=== PATIENT | male | born 1985 | race Caucasian/White ===

== ENCOUNTER → 2016-11-02 | Outpatient (CLI) | payer OTHER ==
[~2016-11-02] MED LIST: HYDR-707 PO
--- NOTE | 2016-11-02 11:47 | Diagnostic Imaging Report ---
INDICATION: Right lower quadrant pain. FINDINGS: There are no noncompressible loops of bowel in the right lower quadrant. No ascites or fluid collection. While the appendix itself could never be definitively identified as a discrete structure, all of the right lower quadrant bowel loops show normal compressibility. IMPRESSION: No sonographic findings to suggest underlying appendicitis. The appendix itself could never be clearly found. No abnormal appearing loop of bowel, fluid collection, or ascites in the right lower quadrant. Dictated by: Dictated on workstation # [id number]
== END ==
LOC: RAD 10:15
PROVIDERS: ATTEND Nurse Practitioner Community Health
DX: R10.31 Right lower quadrant pain (principal)
CPT/HCPCS: 76705

== ENCOUNTER 2016-11-14 14:07 | Emergency (ER) | payer OTHER ==
[~2016-11-14] VITALS: Ht 170.2 cm; Wt 74.8 kg
[2016-11-14] MEDS ORDERED: AMIT10TA6 PO (14:54)
[2016-11-14] MEDS ORDERED: NS IV 1000 ML 1,000 ML IV ONE (16:14)
[2016-11-14] MEDS ORDERED: KETOROLAC 30 MG/ML VIAL IVP STA (16:14)
--- NOTE | 2016-11-14 16:19 | ED General ---
General Chief Complaint: General Problems/Pain Stated Complaint: RIB PAIN Nursing Triage Note: AMB TO ED FROM [facility]. HURTS ALL OVER HAS BEEN SEEN AT [facility] BY Srini LAWRENCE. C/O RECTAL PAIN R LOWER QUAD PAIN Nursing Sepsis Screen: No Definite Risk Source of Information: Patient Exam Limitations: No Limitations History of Present Illness Time Seen by Provider: 15:57 Initial Comments 31-year-old male patient presents to the emergency department with complaints of his abdomen hurting all over. Patient is brought in from [facility]. Reports having a sonogram yesterday ordered by Min Marroquin at [facility]. Unsure of the results. Denies fever, hematuria, diarrhea, vomiting. Timing/Duration: Changing Over Time, Other (2 month onset) Modifying Factors: worse with Other (worse with palpation) Allergies and Home Medications Allergies Coded Allergies: Tetracycline (Unverified Allergy, Intermediate, HIVES, 05/07/10) Home Medications Amitriptyline HCl 10 Mg Tablet, 10 MG PO, (Reported) Hydrocodone Bit/Acetaminophen 1 Each Tablet, 1-2 EACH PO Q6HR PRN, #12 (Reported ) Hydrocortisone/Pramoxine 30 Gm Cream.appl, 1 APPLIC RC QID, #1 Ref 0 Prescribed by: MELISSA MOHAN on 11/14/16 1800 Polyethylene Glycol 3350 119 Gm Powder, 119 GM PO UD, #1 Ref 0 17 g po bid x3 days, then 17 g po qhs prn constipation Prescribed by: MELISSA MOHAN on 11/14/16 1800 Constitutional: chills, No fever, malaise EENTM: no symptoms reported Respiratory: No cough, No phlegm, No short of breath Cardiovascular: No chest pain, No palpitations, No syncope Gastrointestinal: see HPI, abdominal pain, No constipation, No diarrhea, No hematemesis, No melena, No nausea, No vomiting, other (bright red blood streaked on the stool and on the toilet paper. pain with defecation.) Genitourinary: No decreased output, No dysuria, No frequency, No hematuria, No pain Musculoskeletal: no symptoms reported Skin: no symptoms reported Psychiatric/Neurological: No Symptoms Reported All Other Systems Reviewed Negative Unless Noted: Yes (Negative excepted noted.) Past Kbfkfqb-Noebuh-Tyzbmf Hx Patient Social History Alcohol Use: Past History Recreational Drug Use: No Smoking Status: Never a Smoker Recent Foreign Travel: No Contact w/Someone Who Travel: No Recent Infectious Disease Expo: No Surgeries HX Surgeries: No Respiratory Hx Respiratory Disorders: No Cardiovascular Hx Cardiac Disorders: No Neurological Hx Neurological Disorders: No Genitourinary Hx Genitourinary Disorders: No Gastrointestinal Hx Gastrointestinal Disorders: No Musculoskeletal Hx Musculoskeletal Disorders: No Endocrine Hx Endocrine Disorders: No Psychosocial Behavioral Health Disorders: Depression Reviewed Nursing Assessment Reviewed/Agree w Nursing PMH: Yes Family Medical History Significant Family History: No Pertinent Family Hx Physical Exam Vital Signs Vital Sign - Last 12Hours 11/14/16 11/14/16 14:42 18:49 Temp 98.0 Pulse 107 Resp 18 B/P (MAP) 134/85 Pulse Ox 96 O2 Delivery Room Air Capillary Refill : Less Than 3 Seconds General Appearance: No Apparent Distress, WD/WN HEENT: PERRL/EOMI, Pharynx Normal Neck: Normal Inspection, Supple Respiratory: Lungs Clear, Normal Breath Sounds, No Respiratory Distress Cardiovascular: No Edema, No Murmur, Normal Peripheral Pulses, Tachycardia Gastrointestinal: Normal Bowel Sounds, No Organomegaly, Soft, No Distended, Guarding (generalized guarding), No Rebound, Tenderness (generalized tenderness) Back: Normal Inspection, No CVA Tenderness Extremity: Normal Capillary Refill, No Pedal Edema Neurologic/Psychiatric: Alert, Oriented x3, Normal Mood/Affect Skin: Normal Color, Warm/Dry Progress/Results/Core Measures Results/Orders Lab Results Laboratory Tests Test 11/14/16 16:26 11/14/16 16:32 Range/Units Urine Color YELLOW Urine Clarity CLEAR Urine pH 8 5-9 Urine Specific [place] 1.015 L 1.016-1.022 Urine Protein NEGATIVE NEGATIVE Urine Glucose (UA) NEGATIVE NEGATIVE Urine Ketones NEGATIVE NEGATIVE Urine Nitrite NEGATIVE NEGATIVE Urine Bilirubin NEGATIVE NEGATIVE Urine Urobilinogen NORMAL NORMAL MG/DL Urine Leukocyte Esterase NEGATIVE NEGATIVE Urine RBC (Auto) NEGATIVE NEGATIVE Urine RBC NONE /HPF Urine WBC RARE /HPF Urine Crystals NONE /LPF Urine Bacteria NEGATIVE /HPF Urine Casts NONE /LPF Urine Mucus NEGATIVE /LPF Urine Culture Indicated NO White Blood Count 6.8 4.3-11.0 10^3/uL Red Blood Count 5.04 4.35-5.85 10^6/uL Hemoglobin 15.0 13.3-17.7 G/DL Hematocrit 43 40-54 % Mean Corpuscular Volume 85 80-99 FL Mean Corpuscular Hemoglobin 30 25-34 PG Mean Corpuscular Hemoglobin Concent 35 32-36 G/DL Red Cell Distribution Width 12.4 10.0-14.5 % Platelet Count 249 130-400 10^3/uL Mean Platelet Volume 9.2 7.4-10.4 FL Neutrophils (%) (Auto) 63 42-75 % Lymphocytes (%) (Auto) 29 12-44 % Monocytes (%) (Auto) 7 0-12 % Eosinophils (%) (Auto) 1 0-10 % Basophils (%) (Auto) 0 0-10 % Neutrophils # (Auto) 4.3 1.8-7.8 X 10^3 Lymphocytes # (Auto) 2.0 1.0-4.0 X 10^3 Monocytes # (Auto) 0.5 0.0-1.0 X 10^3 Eosinophils # (Auto) 0.1 0.0-0.3 10^3/uL Basophils # (Auto) 0.0 0.0-0.1 10^3/uL Sodium Level 142 135-145 MMOL/L Potassium Level 4.1 3.6-5.0 MMOL/L Chloride Level 107 98-107 MMOL/L Carbon Dioxide Level 23 21-32 MMOL/L Anion Gap 12 5-14 MMOL/L Blood Urea Nitrogen 9 7-18 MG/DL Creatinine 0.93 0.60-1.30 MG/DL Estimat Glomerular Filtration Rate > 60 BUN/Creatinine Ratio 10 Glucose Level 97 70-105 MG/DL Calcium Level 9.8 8.5-10.1 MG/DL Total Bilirubin 0.6 0.1-1.0 MG/DL Aspartate Amino Transf (AST/SGOT) 17 5-34 U/L Alanine Aminotransferase (ALT/SGPT) 19 0-55 U/L Alkaline Phosphatase 66 40-136 U/L Total Protein 7.8 6.4-8.2 G/DL Albumin 4.8 H 3.2-4.5 G/DL Lipase 42 8-78 U/L MELISSA Mondragon Cbc With Automated Diff (11/14/16 16:14) Comprehensive Metabolic Panel (11/14/16 16:14) Lipase (11/14/16 16:14) Ua Culture If Indicated (11/14/16 16:14) Ct Abdomen/Pelvis W (11/14/16 16:14) Ketorolac Injection (Toradol Injection) (11/14/16 16:14) Saline Lock/Iv-Start (11/14/16 16:14) Ns Iv 1000 Ml (Sodium Chloride 0.9%) (11/14/16 16:14) Iohexol Injection (Omnipaque 350 Mg/Ml 1 (11/14/16 16:30) Ns (Ivpb) (Sodium Chloride 0.9% Ivpb Bag (11/14/16 16:30) Medications Given in ED Vital Signs/I&O Intake and Output 11/15/16 00:00 Intake Total 1000 ml Balance 1000 ml Blood Pressure Mean: 101 Diagnostic Imaging Diagonstic Imaging: CT Plain Films/CT/US/NM/MRI: abdomen, pelvis Comments On the previous CT abdomen/pelvis exam performed on 07/16/09 there was no evidence for acute appendicitis. The recent appendix ultrasound exam of 11/02/16 was also unremarkable for acute appendicitis. On this study, the appendix was difficult to visualize. The appendix does seem to be partially filled with gas and not abnormally thickened. Furthermore, there is no distortion of the periappendiceal fat to suggest acute appendicitis at this time. There is no pelvic mass or free fluid collection noted. The prostate gland is unremarkable. The urinary bladder is distended by urine. There is a fair amount of fecal material throughout the colon. There are numerous gas-filled segments of small bowel present. There is no sign of a bowel obstruction, however. The liver, spleen, pancreas, adrenals, gallbladder, kidneys, aorta and inferior vena cava are unremarkable for an acute abnormality. The stomach is partially filled with fluid and consequently difficult to assess. The lung bases are clear. The bone window shows no evidence for a fracture or for an obstructive lesion. IMPRESSION : 1. The appendix was not particularly well visualized but the appendix does not seem to be abnormally thickened. There are no indirect signs of acute appendicitis either. Clinical follow up is recommended. 2. There is no acute abnormality in the abdomen or pelvis noted otherwise. 3. There is a considerable amount of fecal material throughout the colon. 4. The gas-filled segments of small bowel are nonspecific. There is no sign of a bowel obstruction. Dictated by: Dictated on workstation # [id number] Reviewed: Reviewed by Me (radiology report reviewed by me) Departure Communication Progress Notes Laboratory and diagnostic findings discussed with the patient. Patient reports feeling better with medications given. Plan for discharge to home. Patient instructed to follow-up with Min Marroquin APRN for recheck. All return precautions were discussed with the patient as described in the discharge instructions of this report. Patient voices understanding and agrees with the treatment plan. Impression Impression: Primary Impression: Abdominal pain Qualified Codes: R10.84 - Generalized abdominal pain Additional Impression: Constipation Qualified Codes: K59.00 - Constipation, unspecified Disposition: HOME, SELF-CARE Condition: Improved Departure-Patient Inst. Decision time for Depature: 17:52 Referrals: JOSE DE JESUS NICHOLS DO (PCP/Family) Primary Care Physician LARISSA GUZMÁN MD Patient Instructions: Acute Abdomen (Belly Pain), Adult (DC), Constipation, Adult (DC) Add. Discharge Instructions: All discharge instructions reviewed with patient and/or family. Voiced understanding. medications as instructed. Colace stool softener 100 mg by mouth twice daily. Drink plenty of fluids. High fiber diet. Follow-up with your family practitioner for recheck if no improvement in symptoms. Return to the emergency department for worsened symptoms or any other concerns. Scripts Hydrocortisone/Pramoxine (Analpram Hc 2.5% Cream) 30 Gm Cream.appl 1 APPLIC RC QID, #1 EA 0 Refills Prov: MELISSA MOHAN 11/14/16 Polyethylene Glycol 3350 (Miralax) 119 Gm Powder 119 GM PO UD, #1 EA 0 Refills 17 g po bid x3 days, then 17 g po qhs prn constipation Prov: MELISSA MOHAN 11/14/16 MELISSA MOHAN Nov 14, 2016 16:19
[2016-11-14] MEDS ORDERED: NS 100 ML (IVPB) BAG IV ONE (16:30)
[2016-11-14] MEDS ORDERED: IOHEXOL 350 MG/ML 100 ML (OMNIPAQUE 350) VIAL IV ONE (16:30)
[2016-11-14 16:35] LABS: BILIRUBIN,URINE NEGATIVE (NEGATIVE); KETONES,URINE NEGATIVE (NEGATIVE); LEUKOCYTE ESTERASE ,URINE NEGATIVE (NEGATIVE); NITRITE,URINE NEGATIVE (NEGATIVE); PH,URINE 8 (5-9); PROTEIN,URINE NEGATIVE (NEGATIVE); UROBILINOGEN,URINE NORMAL (NORMAL)
[2016-11-14 16:41] LABS: BASOPHILS % (AUTO) 0 % (0-10); EOSINOPHILS # (AUTO) 0.1 10^3/uL (0.0-0.3); EOSINOPHILS % (AUTO) 1 % (0-10); LYMPHOCYTES % (AUTO) 29 % (12-44); MEAN CORPUSCULAR HEMOGLOBIN 30 PG (25-34); MEAN CORPUSCULAR HGB CONC 35 G/DL (32-36); MEAN CORPUSCULAR VOLUME 85 FL (80-99); MEAN PLATELET VOLUME 9.2 FL (7.4-10.4); MONOCYTES # (AUTO) 0.5 X 10^3 (0.0-1.0); MONOCYTES % (AUTO) 7 % (0-12); NEUTROPHILS # (AUTO) 4.3 X 10^3 (1.8-7.8); NEUTROPHILS % (AUTO) 63 % (42-75); PLATELET COUNT 249 10^3/uL (130-400); RED BLOOD COUNT 5.04 10^6/uL (4.35-5.85); RED CELL DISTRIBUTION WIDTH 12.4 % (10.0-14.5); WHITE BLOOD COUNT 6.8 10^3/uL (4.3-11.0)
[2016-11-14 16:43] LABS: WBC,URINE RARE /HPF
[2016-11-14 17:00] LABS: ALANINE AMINOTRANSFERASE 19 U/L (0-55); ALBUMIN 4.8 G/DL (3.2-4.5); ANION GAP 12 MMOL/L (5-14); ASPARTATE AMINO TRANSFERASE 17 U/L (5-34); BILIRUBIN,TOTAL 0.6 MG/DL (0.1-1.0); BLOOD UREA NITROGEN 9 MG/DL (7-18); BUN/CREATININE RATIO 10; CALCIUM 9.8 MG/DL (8.5-10.1); CARBON DIOXIDE 23 MMOL/L (21-32); CHLORIDE 107 MMOL/L (98-107); CREATININE SERUM 0.93 MG/DL (0.60-1.30); GFR ESTIMATED > 60; GLUCOSE 97 MG/DL (70-105); LIPASE 42 U/L (8-78); POTASSIUM 4.1 MMOL/L (3.6-5.0); SODIUM 142 MMOL/L (135-145); TOTAL PROTEIN 7.8 G/DL (6.4-8.2)
--- NOTE | 2016-11-14 17:18 | Diagnostic Imaging Report ---
PROCEDURE: CT abdomen and pelvis with contrast. TECHNIQUE: Multiple contiguous axial images were obtained through the abdomen and pelvis after administration of intravenous contrast. INDICATION: Right lower quadrant pain. On the previous CT abdomen/pelvis exam performed on 07/16/09 there was no evidence for acute appendicitis. The recent appendix ultrasound exam of 11/02/16 was also unremarkable for acute appendicitis. On this study, the appendix was difficult to visualize. The appendix does seem to be partially filled with gas and not abnormally thickened. Furthermore, there is no distortion of the periappendiceal fat to suggest acute appendicitis at this time. There is no pelvic mass or free fluid collection noted. The prostate gland is unremarkable. The urinary bladder is distended by urine. There is a fair amount of fecal material throughout the colon. There are numerous gas-filled segments of small bowel present. There is no sign of a bowel obstruction, however. The liver, spleen, pancreas, adrenals, gallbladder, kidneys, aorta and inferior vena cava are unremarkable for an acute abnormality. The stomach is partially filled with fluid and consequently difficult to assess. The lung bases are clear. The bone window shows no evidence for a fracture or for an obstructive lesion. IMPRESSION: 1. The appendix was not particularly well visualized but the appendix does not seem to be abnormally thickened. There are no indirect signs of acute appendicitis either. Clinical follow up is recommended. 2. There is no acute abnormality in the abdomen or pelvis noted otherwise. 3. There is a considerable amount of fecal material throughout the colon. 4. The gas-filled segments of small bowel are nonspecific. There is no sign of a bowel obstruction. Dictated by: Dictated on workstation # [id number]
[2016-11-14] MEDS ORDERED: POLY119P5 PO (18:00)
[2016-11-14] MEDS ORDERED: HC A30CR RC (18:00)
[2016-11-14 18:49] VITALS: BP 147/98
== END 2016-11-14 18:49 | disposition home or self-care (01) ==
LOC: EDUNIT# 14:07 → ER 14:09
DX: R10.31 Right lower quadrant pain (principal); K59.00 Constipation, unspecified
CPT/HCPCS: 36415; 74177; 80053; 81000; 83690; 85025; 96361; 96374